=== PATIENT | female | born 1955 | race African-American/Black ===

== ENCOUNTER 2018-01-31 14:21 | Emergency (ER) | payer MEDICAID ==
[~2018-01-31] VITALS: Ht 167.6 cm; Wt 81.6 kg
[2018-01-31 15:00] VITALS: BP 140/73
== END 2018-01-31 15:55 | disposition home or self-care (01) ==
LOC: ER 14:21
DX: S16.1XXA Strain of muscle, fascia and tendon at neck level, initial encounter (principal); E11.9 Type 2 diabetes mellitus without complications; I10 Essential (primary) hypertension; Z76.0 Encounter for issue of repeat prescription; W03.XXXA Other fall on same level due to collision with another person, initial encounter; Y93.89 Activity, other specified; Y92.89 Other specified places as the place of occurrence of the external cause; Y99.8 Other external cause status
CPT/HCPCS: 72040; 73030; 82962

== ENCOUNTER 2018-03-05 11:31 | Emergency (ER) | payer MEDICAID ==
[~2018-03-05] VITALS: Ht 167.6 cm; Wt 81.6 kg
[2018-03-05 12:38] LABS: Basophils # (auto) 0.1 uL; Monocytes # (auto) 0.6 uL; Neutrophils # (auto) 2.7 uL
[2018-03-05 12:40] LABS: Eosinophils # (auto) 0.1 uL; Eosinophils % (auto) 0.9 % (0.0-7.0); Hematocrit 38.6 % (36.0-46.0); Hemoglobin 12.4 g/dL (12.2-16.2); Lymphocytes # (auto) 2.6 uL; Lymphocytes % (auto) 43.4 % (10.0-50.0); Mean Corpuscular Hemoglobin 25.1 pg (28.0-32.0); Mean Corpuscular Hgb Conc. 32.2 g/dL (32.0-36.0); Neutrophils % (auto) 44.7 % (37.0-80.0); Platelet Count (auto) 310 10^3/uL (140-450); Red Blood Cells 4.95 10^6/uL (4.0-5.20); Red Cell Distribution Width 18.1 % (11.8-14.3)
[2018-03-05 12:41] LABS: Albumin 3.4 g/dL (3.4-5.0); BUN/Creatinine Ratio 12.8; Calcium 9.9 mg/dL (8.5-10.1); Potassium 4.4 mmol/L (3.5-5.1)
[2018-03-05 12:44] LABS: Bilirubin, Total 0.2 mg/dL (0.2-1.0)
[2018-03-05 13:24] LABS: Urine Bacteria NONE SEEN /hpf (None Seen); Urine Blood Negative /uL (Negative); Urine Mucus FEW (None Seen); Urine Specific Gravity 1.026 (1.001-1.035); Urine WBC 1 /hpf (0 - 5)
[2018-03-05] MEDS ORDERED: HYDROcodone-ACET 10/325MG TAB PO ONE (19:30)
[2018-03-05 21:07] LABS: INR 0.93 (0.9-1.15)
[2018-03-05 21:10] LABS: Magnesium 1.7 mg/dL (1.6-2.6)
[2018-03-05] MEDS ORDERED: ONDANSETRON ODT 4 MG TAB PO ONE (22:30)
[2018-03-05 23:06] VITALS: BP 159/93
== END 2018-03-06 01:06 | disposition left against medical advice (07) ==
LOC: ER 11:32
DX: M47.892 Other spondylosis, cervical region (principal); M25.512 Pain in left shoulder; M79.602 Pain in left arm; E11.9 Type 2 diabetes mellitus without complications; I10 Essential (primary) hypertension; R06.02 Shortness of breath; W19.XXXA Unspecified fall, initial encounter; Y93.89 Activity, other specified; Y92.89 Other specified places as the place of occurrence of the external cause; Y99.8 Other external cause status
CPT/HCPCS: 36415; 71045; 72125; 74176; 80053; 81001; 82150; 83690; 83735; 83880; 84484; 85025; 85610; 85730; 93005; 99285; Q0162